=== PATIENT | female | born 1970 ===

== ENCOUNTER 2018-01-10 07:10 | Emergency (ER) | payer BC, OTHER ==
[2018-01-10 07:27] VITALS: BP 147/96
--- NOTE | 2018-01-10 07:44 | UC ---
Complaint Female HPI - HPI Summary HPI Summary: I is a 47-year-old female with a three-day history of right flank pain dysuria urgency frequency and hematuria. At one point the pain was so severe she became diaphoretic. She has had some mild nausea. Denies any vaginal discharge or itching. - History Of Current Complaint Chief Complaint: UCGU Stated Complaint: POSS UTI Time Seen by Provider: 01/10/18 07:18 Hx Obtained From: Patient Hx Last Menstrual Period: 07/19/12 Onset/Duration: Gradual Onset, Lasting Days Timing: Constant Severity Initially: Mild Severity Currently: Moderate Pain Intensity: 5 - 7-8 at times Character: Burning, Colicy Aggravating Factor(s): Urination Associated Signs And Symptoms: Positive: Back Pain - Allergies/Home Medications Allergies/Adverse Reactions: Allergies Allergy/AdvReac Type Severity Reaction Status Date / Time No Known Allergies Allergy Verified 01/10/18 07:19 Home Medications: Home Medications Ibuprofen [Advil] 200 mg PO Q8HR PRN 01/10/18 [History Confirmed 01/10/18] Varenicline (NF) [Chantix 1 MG TAB (NF)] 1 mg PO BID 01/10/18 [History Confirmed 01/10/18] PMH/Surg Hx/FS Hx/Imm Hx Previously Healthy: Yes - Surgical History Surgical History: Yes Surgery Procedure, Year, and Place: E Sure in fallopian tubes, ovary removal - Family History Known Family History: Positive: Hypertension - Social History Alcohol Use: None Substance Use Type: None Smoking Status (MU): Former Smoker Type: Cigarettes Review of Systems Constitutional: Negative Skin: Negative Eyes: Negative ENT: Negative Respiratory: Negative Cardiovascular: Negative Gastrointestinal: Nausea Genitourinary: Dysuria, Hematuria, Frequency, Urgency Motor: Negative Neurovascular: Negative Musculoskeletal: Negative Neurological: Negative Psychological: Negative Is Patient Immunocompromised?: No All Other Systems Reviewed And Are Negative: Yes Physical Exam Triage Information Reviewed: Yes Appearance: Well-Appearing, No Pain Distress, Well-Nourished Vital Signs: Initial Vital Signs Temp 99.2 F 01/10/18 07:21 Pulse 78 01/10/18 07:21 Resp 16 01/10/18 07:21 BP 147/96 01/10/18 07:21 Pulse Ox 100 01/10/18 07:21 Vital Signs Reviewed: Yes Eyes: Positive: Conjunctiva Clear ENT: Positive: Hearing grossly normal. Negative: Nasal congestion, Nasal drainage, Trismus, Muffled voice, Hoarse voice Neck: Positive: Supple, Nontender Respiratory: Positive: Lungs clear, Normal breath sounds, No respiratory distress, No accessory muscle use Cardiovascular: Positive: RRR, No Murmur Abdomen Description: Positive: Nontender, CVA Tenderness (R) - mild Bowel Sounds: Positive: Present Musculoskeletal: Positive: ROM Intact, No Edema Neurological: Positive: Alert Psychological Exam: Normal Skin Exam: Normal Diagnostics - Radiology No standard instances Xray Interpretation: No Acute Changes - CT abd and pelvis Radiology Interpretation Completed By: Radiologist Complaint Female Dx - Differential Dx/Diagnosis Provider Diagnoses: UTI. microscopic hematuria. elevated BP without diagnosis of HTN Discharge - Sign-Out/Discharge Documenting (check all that apply): Discharge/Admit/Transfer - Discharge Plan Condition: Stable Disposition: HOME Prescriptions: Cephalexin CAP* [Keflex CAP*] 500 mg PO BID #14 cap Phenazopyridine TAB* [Pyridium TAB*] 100 mg PO TID #6 tab Patient Education Materials: Urinary Tract Infection in Women (ED) Referrals: [facility] [place] [facility] [Outside] (call this number for help finding a local MD your BP needs to be followed and if it remains consistently high will need treatment) Additional Instructions: a urine culture is pending I suggest you call for results in 48-72 hours IF THE CULTURE IS NEGATIVE FOR INFECTION YOU WILL NEED FURTHER TESTS TO DETERMINE THE CAUSE OF THE BLOOD IN YOUR URINE your BP was elevated and needs follow up - Billing Disposition and Condition Condition: STABLE Disposition: Home
--- NOTE | 2018-01-10 08:26 | RAD ---
INDICATION: Right flank pain with hematuria COMPARISON: CT October 18, 2012 TECHNIQUE: Noncontrast axial source images were acquired from the level hemidiaphragms to the symphysis pubis as part of CT imaging for renal stone. Lung bases: The lung bases are clear. Liver: The liver is normal in size. Noncontrast imaging shows no evidence of a hepatic mass or ductal dilatation. Gallbladder: There are no calcified gallstones. There is no evidence of wall thickening or pericholecystic fluid.. Spleen: The spleen is normal in size. The noncontrast CT appearance is normal. Pancreas: Noncontrast imaging shows no pancreatic mass or ductal dilitation. Adrenal glands: No masses are identified. Kidneys/Bladder: There is no evidence of nephrolithiasis or CT evidence of hydronephrosis. Noncontrast imaging shows no evidence of a renal mass. The bladder is unremarkable.. Adenopathy: There is no evidence of intraperitoneal or retroperitoneal adenopathy. Evaluation is limited without oral contrast. Fluid collections: There are no free or localized fluid collections. Vessels: The aorta and iliac vessels are normal in caliber. There are no significant atherosclerotic changes. There is a calcification in the origin of the left renal artery. The IVC appears normal Pelvic organs: The uterus appears normal. There is a small right ovarian cyst measuring 1.7 cm. There are Essure coils. GI tract: Evaluation of the bowel is limited without oral contrast. The stomach, small bowel, and lower GI tract appear grossly normal. There are no obstructive findings. The appendix is visualized and appears normal. Soft tissues: No soft tissue abnormalities of the extraperitoneal abdomen or pelvis are identified. Osseous structures: There are no acute osseous findings. IMPRESSION: NO CT EVIDENCE OF UROLITHIASIS. NO ACUTE CT FINDINGS
--- NOTE | 2018-01-12 10:18 | UC ---
- Progress Note Progress Note: Pt with + E. Coli On Keflex + sensitive no change 01/12/18 [facility] Discharge - Sign-Out/Discharge Documenting (check all that apply): Post-Discharge Follow Up - Discharge Plan Condition: Stable Disposition: HOME Prescriptions: Cephalexin CAP* [Keflex CAP*] 500 mg PO BID #14 cap Phenazopyridine TAB* [Pyridium TAB*] 100 mg PO TID #6 tab Patient Education Materials: Urinary Tract Infection in Women (ED) Referrals: [facility] [place] [facility] [Outside] (call this number for help finding a local MD your BP needs to be followed and if it remains consistently high will need treatment) Additional Instructions: a urine culture is pending I suggest you call for results in 48-72 hours IF THE CULTURE IS NEGATIVE FOR INFECTION YOU WILL NEED FURTHER TESTS TO DETERMINE THE CAUSE OF THE BLOOD IN YOUR URINE your BP was elevated and needs follow up - Billing Disposition and Condition Condition: STABLE Disposition: Home
== END 2018-01-10 08:50 | disposition home or self-care (01) ==
LOC: UCEAST 07:10
DX: N39.0 Urinary tract infection, site not specified (principal); R31.29 Other microscopic hematuria; R03.0 Elevated blood-pressure reading, without diagnosis of hypertension; Z87.891 Personal history of nicotine dependence
CPT/HCPCS: 74176; 81003; 87077; 87086; 87186; 99202; G0463

== ENCOUNTER 2018-03-14 15:06 | Emergency (ER) | payer OTHER ==
--- OUTSIDE RECORDS SUMMARY | 2018-03-14 15:19 | XMS REPORT ---
:1970 External Reference #:[id number] Author Organization [facility] Address [address] [place] [address] Phone [phone] Care Team Providers Name Role Phone Issa Neal MD Care Team Information Barley Steeper Unavailable Issa Neal MD Primary Care Physician Unavailable Payers Type Date Identification Numbers Payment Provider Subscriber Commercial Effective: Policy Number: [id number] Travis Cedeño 2017 PayID: [id number] [address] [place] [address] Problems Description No Information Family History Date Family Member(s) Problem(s) Comments Father due to age 68 hodgkins () Mother 79 First Brother 48 Social History Type Date Description Comments Marital Status Single Lives With Mother Occupation [employer] Cigars quitting with chantix ETOH Use Denies alcohol use Daily Caffeine Consumes on average 1 cup of coffee per day Exercise Type/Frequency gym -- 3 x a week Allergies, Adverse Reactions, Alerts Date Description Reaction Status Severity Comments 02/08/2018 NKDA active Medications Medication Date Status Form Strength Qnty SIG Indications Ordering Provider Sulfamethoxazo Active Tablets 800-160mg 14tabs 1 by N39.0 Issa parker/Trimethopri 018 mouth jeremy Neal twice a day Chantix Active Tablets 1mg 30tabs take 1 [place] Continuing 018 tablet by Hermann Fofana mouth Afnp-C twice a day Bactrim DS Hx Tablets 800-160mg 14tabs twice a N39.0 Issa Galvin - day Val MD Galvin Sulfamethoxazo Hx Tablets 800-160mg 14tabs twice a N39.0 Issa parker/Trimethopri 018 - day jeremy Neal DS MD Galvin Sulfamethoxazo Hx Tablets 800-160mg 180tabs twice a N39.0 Issa parker/Trimethopri 018 - day jeremy Neal DS MD Galvin Vital Signs Date Vital Result Comment 03/07/2018 BP Systolic 120 mmHg BP Diastolic 78 mmHg Heart Rate 74 /min Body Temperature 97.9 F Respiratory Rate 18 /min Height 64 inches 5'4" Weight 191.00 lb BMI (Body Mass Index) 32.8 kg/m2 02/08/2018 BP Systolic 122 mmHg BP Diastolic 88 mmHg Heart Rate 76 /min Body Temperature 97.9 F Respiratory Rate 18 /min Height 64 inches 5'4" Weight 190.00 lb BMI (Body Mass Index) 32.6 kg/m2 Results Test Date Test Result H/L Range Note Ua - Micro (Fma) 02/08/2018 Appearance clear Color yellow Glucose, Urine (Fma/CMC/CTX) neg Bilirubin neg Ketones neg SP Grav >=1.005 Blood neg PH 6.0 Protein neg Urobil 0.2 Nitrite neg Leukocytes (Fma/CMC/Centrex) small Hyaline - /Lpf Granular - /Lpf WBC (Fma,Centrex) 7-10 RBC - Mucus - /Lpf Epith few /Lpf Bacteria 2+ /Hpf Amorphous - /Lpf Crystals, Fluid (Fma/CMC/CTX) - Z#Comments - Comprehensive Metabolic Prof 02/08/2018 Sodium 137 mEq/L 134-149 Potassium 4.3 mEq/L 3.6-5.5 Chloride 106 mEq/L 94-112 Carbon Dioxide 27 mEq/L 21-32 Glucose 81 mg/dL 70-105 BUN 20 mg/dL 6-26 Creatinine 0.8 mg/dL 0.6-1.4 BUN/Creat Ratio 25.0 CALC 8.0-36.0 Calcium 9.0 mg/dL 8.6-10.2 Total Protein 6.9 g/dL 6.4-8.3 Albumin 4.3 g/dL 3.8-5.5 Globulin 2.6 g/dL 2.0-4.8 A/G Ratio 1.7 CALC 0.6-2.3 Alk. Phosphatase 69 U/L 30-110 Alt (SGPT) 19 U/L 7-35 Ast (Sgot) 18 U/L 5-34 Total Bilirubin 0.3 mg/dL 0.2-1.3 GFR Non- >60 ml/min/1.73m^ >=60 GFR >60 ml/min/1.73m^ >=60 Laboratory test finding 02/08/2018 Free T4 1.10 ng/dL 0.75-1.54 Lipid Profile 02/08/2018 Cholesterol 238 mg/dL High 120-200 Triglycerides 165 mg/dL 30-200 HDL Cholesterol 71 mg/dL 30-85 LDL (Calculated) 134 CALC High 0-129 VLDL Cholesterol 33 mg/dL 0-50 HDL Risk Factor 3.4 CALC 0.0-4.4 Laboratory test finding 02/08/2018 TSH 1.17 mIU/L 0.50-6.00 CBC Electronic Fma 02/08/2018 WBC 5.7 x10^3/UL 4.0-10.0 RBC 4.50 x10^6/UL 3.93-6.00 HGB 13.2 g/dL 12.0-17.0 HCT 39 % 35-50 MCV 87.1 fL 80.0-95.0 MCH 29.3 pg 25.6-32.2 MCHC 33.7 g/dL 32.2-36.0 RDW-CV 13.1 % 11.6-14.4 PLT 237 x10^3/UL 163-400 MPV 8.9 fL Low 9.4-12.4 [place]yn# 2.59 x10^3/UL 1.56-6.13 Lymph# 2.30 x10^3/UL 1.18-3.74 [place]# 0.55 x10^3/UL 0.24-0.82 Eos # 0.2 x10^3/UL 0.0-0.5 Baso # 0.04 x10^3/UL 0.01-0.08 [place]% 45.6 % 34.0-70.0 Lymph % 40.6 % 20.0-52.0 [place]% 9.7 % 5.0-12.0 Eos% 3.2 % 0.7-7.0 Baso% 0.7 % 0.1-1.2 Procedures Date CPT Code Description Status 07/12/2015 Mammogram Completed Encounters Type Date Location Provider CPT E/M Dx Office Visit 02/08/2018 10:[facility]a [facility] [place], [id number] R03.0 Afnp-C N39.0 Plan of Care 03/07/2018 - Issa Neal MDN39.0 Urinary tract infection, site not specifiedNew Medication:Sulfamethoxazole/Trimethoprim DS 800-160 mgBactrim DS 800-160 mgSulfamethoxazole/Trimethoprim DS 800-160 mgSulfamethoxazole/ Trimethoprim DS 800-160 mgNew Labs:Culture UrineUa - Micro (Fma)R03.0 Elevated blood-pressure reading, w/o diagnosis of htnF17.210 Nicotine dependence, cigarettes, uncomplicatedAllComments:~B_~U_Medication Management~b_~u_ Patient Understands medications she's taking? Yes No Are there Barriers to Adherence? Yes No Has the patient been asked about herbal supplements and therapies, and OTC meds? Yes No
[2018-03-14 15:28] VITALS: BP 109/79
[2018-03-14] MEDS ORDERED: predniSONE TAB* 20 MG PO ONE (15:42)
--- NOTE | 2018-03-14 15:42 | UC ---
Skin Complaint HPI - HPI Summary HPI Summary: Pt c/o of erythematous itchy rash that began yesterday. Pt finished 7 day prescription for bactrim. Pt denies lip, throat or tongue swelling. Pt denies difficulty breathing. Rash is diffuse. pt has not taken any antihistamine at home. - History of Current Complaint Chief Complaint: UCSkin Time Seen by Provider: 03/14/18 15:24 Stated Complaint: FEVER, SKIN CONCERN Hx Obtained From: Patient Hx Last Menstrual Period: 2016 ?: No Onset/Duration: Lasting Hours, Still Present Skin Exposure Onset/Duration: Hours Ago Timing: Constant Onset Severity: Mild Current Severity: Moderate Pain Intensity: 0 Location: Diffuse Character: Pruritus, Hives, Redness Aggravating Factor(s): Touch Alleviating Factor(s): Unknown Associated Signs & Symptoms: Positive: Rash Related History: Recent change in medication - bactrim - Allergy/Home Medications Allergies/Adverse Reactions: Allergies Allergy/AdvReac Type Severity Reaction Status Date / Time No Known Allergies Allergy Verified 03/14/18 15:29 Home Medications: Home Medications Acetaminophen [Acetaminophen Extra Strength] 1,000 mg PO SEE INSTRUCTIONS PRN [History Confirmed 03/14/18] Review of Systems Constitutional: Negative Skin: Rash Eyes: Negative ENT: Negative Respiratory: Negative Cardiovascular: Negative Gastrointestinal: Negative Genitourinary: Negative Motor: Negative Neurovascular: Negative Musculoskeletal: Negative Neurological: Negative Psychological: Negative Is Patient Immunocompromised?: No All Other Systems Reviewed And Are Negative: Yes PMH/Surg Hx/FS Hx/Imm Hx Previously Healthy: Yes - Surgical History Surgical History: Yes Surgery Procedure, Year, and Place: E Sure in fallopian tubes, ovary removal - Family History Known Family History: Positive: Hypertension - Social History Occupation: Employed Full-time Lives: With Family Alcohol Use: None Substance Use Type: None Smoking Status (MU): Former Smoker Type: Cigarettes Have You Smoked in the Last Year: No Physical Exam Triage Information Reviewed: Yes Appearance: Well-Appearing Vital Signs: Initial Vital Signs Temp 99 F 03/14/18 15:19 Pulse 121 03/14/18 15:19 Resp 24 03/14/18 15:19 BP 109/79 03/14/18 15:19 Pulse Ox 99 03/14/18 15:19 Vital Signs Reviewed: Yes Eye Exam: Normal ENT: Positive: Hearing grossly normal Dental Exam: Normal Neck: Positive: Enlarged Nodes @ - bilateral submandibular Respiratory: Positive: No respiratory distress Musculoskeletal Exam: Normal Neurological Exam: Normal Psychological Exam: Normal Skin: Positive: rashes - urticaria Course/Dx - Course Course Of Treatment: Pt gave urine sample and c/o of feeling dizzy while giving sample. EKG done, normal. - Differential Diagnoses - Skin Complaint Differential Diagnoses: Allergic Reaction, Urticaria - Diagnoses Provider Diagnoses: allergic reaction (possible bactrim). urticaria Discharge - Sign-Out/Discharge Documenting (check all that apply): Patient Departure All imaging exams completed and their final reports reviewed: No Studies - Discharge Plan Condition: Stable Disposition: HOME Prescriptions: predniSONE TAB* [Deltasone 20 MG TAB*] 20 mg PO DAILY #4 tab Patient Education Materials: Antihistamine (By mouth), Urticaria (ED), Antibiotic Medication Allergy (ED) Forms: *Work Release Referrals: Issa Neal MD [Primary Care Provider] - If Needed Additional Instructions: Please take oral benadryl when you get home. Please note, that if your symptoms worsen, please call 911. Please do not continue taking the medication Bactrim. - Billing Disposition and Condition Condition: STABLE Disposition: Home
[2018-03-14] MEDS ORDERED: LoraTADine TAB(NF) 10 MG TAB (AUTOSUB to CETIRIZINE) PO ONE (15:46)
[2018-03-14] MEDS ORDERED: Famotidine TAB* 20 MG PO ONE (16:13)
== END 2018-03-14 16:27 | disposition home or self-care (01) ==
LOC: UCCORT 15:06
DX: L50.0 Allergic urticaria (principal); Z87.891 Personal history of nicotine dependence
CPT/HCPCS: 81003; 93005; 99212; A9270-GY; G0463; J7512

== ENCOUNTER 2019-08-24 07:11 | Emergency (ER) | payer OTHER ==
[2019-08-24 07:24] VITALS: BP 135/86
--- NOTE | 2019-08-24 07:30 | UC ---
Knee Pain HPI - HPI Summary HPI Summary: CHIEF COMPLAINT: RIGHT KNEE PAIN HPI: This is a healthy 49-year-old female complaining of one week of right knee pain mostly in the medial and inferior aspects. This condition has become worse over the last 3 days. Description of Pain: The pain is sharp and dull. It's worse with walking. It' s worse in the morning. At work she needs to change position from sitting to standing and this also hurts. She has no previous history of knee problems. VITAL SIGNS REVIEWED. Within normal limits unless noted here. NURSES NOTE REVIEWED. "for the past week, pt's right knee has been painful. no redness, but slightly swollen per pt. no known injury. Pt states she has been exercising. afebrile. " - History of Current Complaint Chief Complaint: UCLowerExtremity Stated Complaint: R KNEE PAIN Time Seen by Provider: 08/24/19 07:27 Hx Obtained From: Patient Hx Last Menstrual Period: 2015 Onset/Duration: Gradual Onset Pain Intensity: 9 - Allergies/Home Medications Allergies/Adverse Reactions: Allergies Allergy/AdvReac Type Severity Reaction Status Date / Time sulfamethoxazole Allergy Hives Verified 08/24/19 07:20 [From Bactrim] trimethoprim [From Bactrim] Allergy Hives Verified 08/24/19 07:20 PMH/Surg Hx/FS Hx/Imm Hx Previously Healthy: Yes - Surgical History Surgical History: Yes Surgery Procedure, Year, and Place: E Sure in fallopian tubes, ovary removal. right wrist surgery - Family History Known Family History: Positive: Hypertension - Social History Occupation: Employed Part-time - Works in a factory. Alcohol Use: None Substance Use Type: None Smoking Status (MU): Former Smoker Type: Cigarettes Have You Smoked in the Last Year: No Review of Systems All Other Systems Reviewed And Are Negative: Yes Constitutional: Positive: Negative Respiratory: Positive: Negative Cardiovascular: Positive: Negative Gastrointestinal: Positive: Negative Musculoskeletal: Positive: Edema, Myalgia - Right knee Physical Exam - Summary Physical Exam Summary: Appearance: The patient is well-appearing, is in no pain or distress, and is well-nourished. Eyes: Conjunctiva are clear. Pupils are equal and reactive to light and accommodation. Extra ocular muscle movement is intact. ENT: The hearing is grossly normal, the pharynx is normal, and the TMs are normal. There is no muffled or hoarse voice. No stridor. Neck: The neck is supple and there is no lymphadenopathy. Respiratory: The chest is non-tender to palpation and without crepitus. The lungs are clear, there are normal breath sounds, and there is no respiratory distress. No wheezes, rales or rhonchi. Cardiovascular: Heart sounds reveal a regular rate and rhythm. There are no clicks, rubs or murmurs. There are no carotid bruits or thrills. Circulation is grossly intact. Abdomen: The abdomen is soft and nontender. There is no organomegaly. Bowel sounds are present and within normal limits. No point tenderness at McBurneys point. No CVA tenderness. Musculoskeletal: Strength is intact. The patient moves all extremities. Examination of the right knee shows mild medial swelling with full range of motion. There is no obvious instability. There is tenderness to palpation along the medial collateral ligament and the inferior medial aspect of the patella. Pain becomes diffuse with walking. There is no redness or evidence of cellulitis or lymphangitis. There is no focused joint space pain. Neurological: The patient is alert. Motor and sensory are examination grossly intact. Speech is normal. Psychological: The patient displays age appropriate behavior, and is conversant. GCS=15. Skin: Negative for rashes. Triage Information Reviewed: Yes Vital Signs: Initial Vital Signs Temp 97.9 F 08/24/19 07:17 Pulse 63 08/24/19 07:17 Resp 18 08/24/19 07:17 BP 135/86 08/24/19 07:17 Pulse Ox 100 08/24/19 07:17 Vital Signs Reviewed: Yes Knee Pain Course/Dx - Course Course Of Treatment: This is a healthy 49-year-old female complaining of one week of right knee pain mostly in the medial and inferior aspects. This condition has become worse over the last 3 days. Description of Pain: The pain is sharp and dull. It's worse with walking. It' s worse in the morning. At work she needs to change position from sitting to standing and this also hurts. She has no previous history of knee problems. Physican examination is c/w medial collatoral ligament sprain; other possibilities include localized inflammation, bursitis and meniscus injury. No instability or other abnormality noted. X ray is negative for fracture. - Differential Dx/Diagnosis Differential Diagnosis/HQI/PQRI: Fracture (Closed), Sprain, Strain Provider Diagnosis: Strain of right knee Discharge ED - Sign-Out/Discharge Documenting (check all that apply): Patient Departure All imaging exams completed and their final reports reviewed: Yes - Discharge Plan Condition: Stable Disposition: HOME Patient Education Materials: Knee Sprain (DC) Referrals: Issa Neal MD [Primary Care Provider] - Joel Pham [Medical Doctor] - Additional Instructions: WE DISCUSSED: PLEASE SEEK CARE AT THE EMERGENCY DEPARTMENT IF SYMPTOMS WORSEN OR IF NEW SYMPTOMS DEVELOP. FOLLOW UP WITH YOUR PRIMARY CARE PHYSICIAN IF CONDITION CONTINUES BEYOND 3 DAYS WITHOUT IMPROVEMENT. YOUR DIAGNOSIS IS: RIGHT KNEE SPRAIN YOUR PRESCRIPTION RECOMMENDATION IS: NONE OTHER INSTRUCTIONS: warm moist heat, especially in the morning; ice to area after use, for pain; if you are not better in two weeks, you should follow up for further evaluation and treatment, as needed. I have given you the name of a sports leadership instructor. USE CRUTCHES, anthony and knee brace; restrict activity until you are pain free. FOR PAIN AND/OR SLEEP: For pain: Ibuprofen (Motrin and other brand names) 400-600mg PLUS acetaminophen (Tylenol and other brand names) 500mg - 1000mg every 8 hours. - Billing Disposition and Condition Condition: STABLE Disposition: Home
== END 2019-08-24 09:04 | disposition home or self-care (01) ==
LOC: UCEAST 07:11
DX: S83.91XA Sprain of unspecified site of right knee, initial encounter (principal); X58.XXXA Exposure to other specified factors, initial encounter; Y92.9 Unspecified place or not applicable; Z88.2 Allergy status to sulfonamides; Z87.891 Personal history of nicotine dependence
CPT/HCPCS: 99213; G0463